=== PATIENT | female | born 1975 | race Caucasian/White ===

== ENCOUNTER 2023-01-02 17:41 | Emergency (ER) | payer OTHER ==
[~2023-01-02] VITALS: Ht 165.1 cm; Wt 63.5 kg
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
[2023-01-02] MEDS ORDERED: IV NS 0.9% 1,000 ML BAG IV ONE (18:00)
[2023-01-02] MEDS ORDERED: diphenhydrAMINE HCL 50 MG/ML VIAL IV ONE (18:00)
[2023-01-02] MEDS ORDERED: HALOPERIDOL LACTATE INJ 5 MG/ML VIAL IM ONE (18:00)
[2023-01-02] MEDS ORDERED: LORAZEPAM INJ 2 MG/ML VIAL IVP ONE (18:00)
[2023-01-02] MEDS ORDERED: diphenhydrAMINE HCL 50 MG/ML VIAL ONE (18:04)
[2023-01-02] MEDS ORDERED: LORAZEPAM INJ 2 MG/ML VIAL ONE (18:05)
[2023-01-02] MEDS ORDERED: HALOPERIDOL LACTATE INJ 5 MG/ML VIAL ONE (18:05)
--- NOTE | 2023-01-02 18:26 | NUR ---
20g ivinserted at [facility], bld drawn, sent to lab
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
--- NOTE | 2023-01-02 18:28 | NUR ---
tried collecting urine but threw it away while on bedpan
[2023-01-02 18:42] LABS: BASOPHILS % (AUTO) 0.3 % (0.0-2.0); HEMATOCRIT 39 % (33-45); HEMOGLOBIN 13.1 g/dL (11.5-14.8); LYMPHOCYTES # (AUTO) 1.3 K/uL (0.8-4.8); LYMPHOCYTES % (AUTO) 26.5 % (20.0-44.0); MEAN CORPUSCULAR HGB CONC 33 g/dl (31.0-36.0); MEAN CORPUSCULAR VOLUME 92 fL (82-100); MONOCYTES # (AUTO) 0.3 K/uL (0.1-1.30); MONOCYTES % (AUTO) 5.4 % (2.0-12.0); NEUTROPHILS # (AUTO) 3.3 K/uL (1.8-8.9); NEUTROPHILS % (AUTO) 67.8 % (43.0-81.0); PLATELET COUNT (AUTO) 244 K/uL (150-450); RED BLOOD CELL COUNT(AUTO) 4.27 MIL/uL (4.0-5.2); WHITE BLOOD COUNT (AUTO) 4.8 K/uL (4.3-11.0)
[2023-01-02 18:49] LABS: CALCIUM, SERUM 8.7 mg/dL (8.5-10.1); CARBON DIOXIDE 24 mmol/L (21-32); CHLORIDE 111 mmol/L (98-107); CREATININE 0.7 mg/dL (0.6-1.3); GLUCOSE 91 mg/dL (74-106); POTASSIUM 3.3 mmol/L (3.5-5.1); SODIUM SERUM 146 mmol/L (136-145); UREA NITROGEN, BLOOD 5 mg/dL (7-18)
[2023-01-02 18:59] LABS: ALANINE AMINOTRANSFERASE 21 U/L (12-78); ALBUMIN 4.2 g/dL (3.4-5.0); ALCOHOL, BLOOD 386 mg/dL (0-10); ALKALINE PHOSPHATASE 82 U/L (46-116); ASPARTATE AMINOTRANSFERASE 14 U/L (15-37); BILIRUBIN,DIRECT 0.1 mg/dL (0.0-0.2); BILIRUBIN,TOTAL 0.2 mg/dL (0.2-1.0); TOTAL PROTEIN, SERUM 7.9 g/dL (6.4-8.2)
--- NOTE | 2023-01-02 19:45 | NUR ---
rec'd report from jaleel rouse, pt sleeping at this time. vss.
--- NOTE | 2023-01-03 | NUR ---
pt pending d/c once ambulatory with steady gait
--- NOTE | 2023-01-03 05:15 | NUR ---
pt awake and alert, pt ambulates to bathroom with steady gait
--- NOTE | 2023-01-03 05:33 | NUR ---
Patient discharged to home in stable condition. Written and verbal after care instructions given. Patient verbalizes understanding of instruction.
[2023-01-03 05:47] VITALS: BP 115/79; TEMP 98.1
== END 2023-01-03 05:47 | disposition home or self-care (01) ==
LOC: ER 17:45
DX: F10.129 Alcohol abuse with intoxication, unspecified (principal); Z59.00 Homelessness unspecified; Y90.8 Blood alcohol level of 240 mg/100 ml or more
CPT/HCPCS: 99285; 96372; 96374; 96361; 96375; 85025; 80048; 80076; 36415; 80143; 80320; J2060; J1200; J1630; J7030; G0480

== ENCOUNTER 2024-10-17 19:09 | Emergency (ER) | payer OTHER ==
[~2024-10-17] VITALS: Ht 170.2 cm; Wt 61.2 kg
[2024-10-17 20:19] LABS: APPEARANCE,URINE CLEAR (CLEAR); BILIRUBIN,URINE Negative (NEGATIVE); BLOOD, URINE Negative Ery/uL (NEGATIVE); COLOR,URINE YELLOW (YELLOW); KETONES,URINE Negative (NEGATIVE); LEUKOCYTE ESTERASE ,URINE Negative (NEGATIVE); PH,URINE 5.5 (5.0-8.0); PROTEIN,URINE Negative (NEGATIVE); UGLUCOSE Negative (NEGATIVE); UROBILINOGEN,URINE 0.2 EU/dL (0.2)
[2024-10-17 20:21] LABS: BASOPHILS # (AUTO) 0.1 K/uL (0.0-0.2); BASOPHILS % (AUTO) 1.1 % (0.0-2.0); EOSINOPHILS # (AUTO) 0.1 K/uL (0.0-0.7); EOSINOPHILS % (AUTO) 1.5 % (0.0-6.0); HEMATOCRIT 33 % (33-45); LYMPHOCYTES # (AUTO) 2.1 K/uL (0.8-4.8); LYMPHOCYTES % (AUTO) 25.3 % (20.0-44.0); MEAN CORPUSCULAR HEMOGLOBIN 31 PG (26.0-33.0); MEAN CORPUSCULAR HGB CONC 34 g/dl (31.0-36.0); MEAN CORPUSCULAR VOLUME 90 fL (82-100); MONOCYTES # (AUTO) 0.5 K/uL (0.1-1.30); MONOCYTES % (AUTO) 5.5 % (2.0-12.0); NEUTROPHILS # (AUTO) 5.6 K/uL (1.8-8.9); NEUTROPHILS % (AUTO) 66.6 % (43.0-81.0); PLATELET COUNT (AUTO) 202 K/uL (150-450); RED BLOOD CELL COUNT(AUTO) 3.62 MIL/uL (4.0-5.2); RED CELL DISTRIBUTION WIDTH 15.1 % (11.5-15.0); WHITE BLOOD COUNT (AUTO) 8.4 K/uL (4.3-11.0)
[2024-10-17 20:22] LABS: NITRITE, URINE NEGATIVE (NEGATIVE)
[2024-10-17 20:28] LABS: CALCIUM, SERUM 9.1 mg/dL (8.5-10.1); CARBON DIOXIDE 27 mmol/L (21-32); CHLORIDE 101 mmol/L (98-107); CREATININE 0.7 mg/dL (0.6-1.3); GLUCOSE 80 mg/dL (74-106); POTASSIUM 3.6 mmol/L (3.5-5.1); SODIUM SERUM 134 mmol/L (136-145); UREA NITROGEN, BLOOD 8 mg/dL (7-18)
[2024-10-17 20:30] LABS: AMPHETAMINE, URINE NEGATIVE (NEGATIVE); BARBITURATE, URINE NEGATIVE (NEGATIVE); BENZODIAZEPINE, URINE POSITIVE (NEGATIVE); CANNABINOID, URINE POSITIVE (NEGATIVE); COCCAINE, URINE NEGATIVE (NEGATIVE); OPIATE, URINE NEGATIVE (NEGATIVE); PHENCYCLIDINE SCREEN,URINE NEGATIVE (NEGATIVE)
[2024-10-17 20:35] LABS: ALANINE AMINOTRANSFERASE 15 U/L (12-78); ALBUMIN 3.7 g/dL (3.4-5.0); ALCOHOL, BLOOD < 3 mg/dL (0-10); ALKALINE PHOSPHATASE 78 U/L (46-116); ASPARTATE AMINOTRANSFERASE 17 U/L (15-37); BILIRUBIN,DIRECT 0.1 mg/dL (0.0-0.2); BILIRUBIN,TOTAL 0.3 mg/dL (0.2-1.0); SALICYLATE 1.8 mg/dL (2.8-20.0); TOTAL PROTEIN, SERUM 6.9 g/dL (6.4-8.2)
[2024-10-17 20:36] LABS: ACETAMINOPHEN <10 ug/ml (10-30)
[2024-10-17 21:22] LABS: PREGNANCY TEST URINE QUAL NEGATIVE (NEGATIVE)
[2024-10-18 00:52] VITALS: BP 122/76; TEMP 98; O2SAT 98
== END 2024-10-18 00:53 ==
LOC: ER 19:19
DX: R44.0 Auditory hallucinations (principal); Z59.00 Homelessness unspecified; Z20.822 Contact with and (suspected) exposure to COVID-19
CPT/HCPCS: 36415; 80048-TC; 80076-TC; 84703-TC; 85025-TC; G0480

== ENCOUNTER 2025-06-02 00:36 | Emergency (ER) | payer MEDICAID, OTHER ==
[~2025-06-02] VITALS: Ht 170.2 cm; Wt 57.6 kg
[2025-06-02 02:20] LABS: PLATELET COUNT (AUTO) 225 K/uL (150-450); RED BLOOD CELL COUNT(AUTO) 3.42 MIL/uL (4.0-5.2); RED CELL DISTRIBUTION WIDTH 14.6 % (11.5-15.0); WHITE BLOOD COUNT (AUTO) 6.2 K/uL (4.3-11.0)
[2025-06-02 02:27] LABS: CALCIUM, SERUM 9.2 mg/dL (8.5-10.1); CREATININE 0.7 mg/dL (0.6-1.3); SODIUM SERUM 139 mmol/L (136-145); UREA NITROGEN, BLOOD 12 mg/dL (7-18)
[2025-06-02 02:40] LABS: APPEARANCE,URINE CLEAR (CLEAR); BLOOD, URINE NEGATIVE Ery/uL (NEGATIVE); LEUKOCYTE ESTERASE ,URINE TRACE (NEGATIVE); NITRITE, URINE NEGATIVE (NEGATIVE); UGLUCOSE NEGATIVE (NEGATIVE)
[2025-06-02 02:41] LABS: ASPARTATE AMINOTRANSFERASE 17 U/L (15-37); TOTAL PROTEIN, SERUM 6.9 g/dL (6.4-8.2)
[2025-06-02 02:42] LABS: ALCOHOL, BLOOD < 3 mg/dL (0-10)
[2025-06-02 02:54] LABS: AMPHETAMINE, URINE NEGATIVE (NEGATIVE); BARBITURATE, URINE NEGATIVE (NEGATIVE); COCCAINE, URINE NEGATIVE (NEGATIVE); OPIATE, URINE NEGATIVE (NEGATIVE)
[2025-06-02 02:57] LABS: ADD URINE CULTURE YES
[2025-06-02 02:58] LABS: BENZODIAZEPINE, URINE POSITIVE (NEGATIVE); CANNABINOID, URINE POSITIVE (NEGATIVE)
[2025-06-02] MEDS ORDERED: CEPHALEXIN MONOHYDRATE 500 MG CAPSULE PO ONE (03:58)
[2025-06-02] MEDS: CEPHALEXIN MONOHYDRATE 500 MG CAPSULE PO ONE (03:58)
[2025-06-02 05:33] LABS: PREGNANCY TEST URINE QUAL NEGATIVE (NEGATIVE)
[2025-06-02 12:07] VITALS: BP 115/82; TEMP 98.5; O2SAT 100
== END 2025-06-02 12:10 | disposition home or self-care (01) ==
LOC: ER 01:15
DX: N39.0 Urinary tract infection, site not specified (principal); Z59.00 Homelessness unspecified; Z79.899 Other long term (current) drug therapy
CPT/HCPCS: 99285; 85025; 80048; 87086; 80076; 84703; 81001; 36415; 80143; 80320; 80307; J7030; G0480